=== PATIENT | male | born 1960 | race Caucasian/White ===

== ENCOUNTER 2018-06-05 09:06 | Emergency (ER) | payer OTHER ==
[2018-06-05] MEDS ORDERED: VALACYCLOVIR 500 MG TAB ONE (09:45)
--- NOTE | 2018-06-05 09:52 | EDPHYS ---
Physician Documentation [facility] Name: Sukhdev Wilkerson Age: 58 yrs Sex: Male : 1960 Arrival Date: 06/05/2018 Time: 09:10 Bed 7 Private MD: Denilson Cueto ED Physician Buzz Horton HPI: 06/05 13:25 This 58 yrs old Male presents to ER via Ambulatory with complaints of Skin pm1 Problem. 13:25 The patient's rash thought to be caused by an unknown cause. The rash is located on the pm1 right subscapular area and right breast. The rash can be described as vesicular. Onset: The symptoms/episode began/occurred 2 day(s) ago. Associated signs and symptoms: Pertinent positives: right subscapular pain at area of rash, Pertinent negatives: fever. Treatment given at home: OTC lotion/cream. The patient has not experienced similar symptoms in the past. Historical: - Allergies: 09:24 Sulfa (Sulfonamide Antibiotics); ph - Home Meds: 09:24 Wellbutrin Oral [Active]; AndroGel transdermal transdermal [Active]; ph - PSHx: 09:24 eye sx; testicular surgery as child; ph - Immunization history:: Adult Immunizations unknown. - Social history:: Smoking status: Patient/guardian denies using tobacco. - Ebola Screening: : No symptoms or risks identified at this time. ROS: 13:25 Constitutional: Negative for fever, chills, and weight loss, Eyes: Negative for injury, pm1 pain, redness, and discharge, ENT: Negative for injury, pain, and discharge, Neck: Negative for injury, pain, and swelling, Cardiovascular: Negative for chest pain, palpitations, and edema, Respiratory: Negative for shortness of breath, cough, wheezing, and pleuritic chest pain, Abdomen/GI: Negative for abdominal pain, nausea, vomiting, diarrhea, and constipation, Back: Negative for injury and pain, MS/Extremity: Negative for injury and deformity. 13:25 Neuro: Negative for headache, weakness, numbness, tingling, and seizure. 13:25 Skin: Positive for rash. Exam: 13:25 Constitutional: This is a well developed, well nourished patient who is awake, alert, pm1 and in no acute distress. Head/Face: Normocephalic, atraumatic. Neck: Trachea midline, no thyromegaly or masses palpated, and no cervical lymphadenopathy. Supple, full range of motion without nuchal rigidity, or vertebral point tenderness. No Meningismus. Chest/axilla: Normal chest wall appearance and motion. Nontender with no deformity. No lesions are appreciated. Cardiovascular: Regular rate and rhythm with a normal S1 and S2. No gallops, murmurs, or rubs. Normal PMI, no JVD. No pulse deficits. Respiratory: Lungs have equal breath sounds bilaterally, clear to auscultation and percussion. No rales, rhonchi or wheezes noted. No increased work of breathing, no retractions or nasal flaring. Abdomen/GI: Soft, non-tender, with normal bowel sounds. No distension or tympany. No guarding or rebound. No evidence of tenderness throughout. Back: No spinal tenderness. No costovertebral tenderness. Full range of motion. 13:25 Skin: Appearance: consistent with zoster. 13:25 Neuro: Orientation: is normal, Motor: is normal, moves all fours, Sensation: is normal, no obvious gross deficits. Vital Signs: 09:25 BP 160 / 86; Pulse 74; Resp 18; Temp 97.9; Pulse Ox 98% on R/A; Weight 96.16 kg; Height ph 5 ft. 11 in. (180.34 cm); Pain 5/10; 10:04 BP 132 / 86; Pulse 71; Resp 18; Temp 97.9; Pulse Ox 99% on R/A; ph 09:25 Body Mass Index 29.57 (96.16 kg, 180.34 cm) ph MDM: 09:20 Patient medically screened. pm1 09:27 Data reviewed: vital signs. Data interpreted: Pulse oximetry: on room air is 98 %. pm1 Interpretation: normal. Counseling: I had a detailed discussion with the patient and/or guardian regarding: the historical points, exam findings, and any diagnostic results supporting the discharge/admit diagnosis, the need for outpatient follow up, to return to the emergency department if symptoms worsen or persist or if there are any questions or concerns that arise at home. Administered Medications: 09:42 Drug: Valtrex 1000 mg Route: PO; ph 10:03 Follow up: Response: No adverse reaction ph Disposition: 11:03 Co-signature as Attending Physician, Buzz Horton MD. rn Disposition: 06/05/18 09:52 Discharged to Home. Impression: Zoster [herpes zoster]. - Condition is Stable. - Discharge Instructions: Shingles. - Prescriptions for Tylenol- Codeine #3 300-30 mg Oral Tablet - take 2 tablets by ORAL route every 6 hours As needed; 20 tablet. Valtrex 1 g Oral Tablet - take 1 tablet by ORAL route every 8 hours for 7 days; 21 tablet. - Work release form, Medication Reconciliation Form, Thank You Letter, Antibiotic Education, Prescription Opioid Use form. - Follow up: Emergency Department; When: As needed; Reason: Worsening of condition. Follow up: Denilson Cueto MD; When: 2 - 3 days; Reason: Recheck today's complaints, Continuance of care, Re-evaluation by your physician. - Problem is new. - Symptoms have improved. Signatures: Buzz Horton MD MD rn ValeroChristie RN RN Yash Veronica, JOI THEATRE INSTRUCTOR pm1 Corrections: (The following items were deleted from the chart) 10:04 09:52 06/05/2018 09:52 Discharged to Home. Impression: Zoster [herpes zoster]. ph Condition is Stable. Forms are Medication Reconciliation Form, Thank You Letter, Antibiotic Education, Prescription Opioid Use. Follow up: Emergency Department; When: As needed; Reason: Worsening of condition. Follow up: Denilson Cueto; When: 2 - 3 days; Reason: Recheck today's complaints, Continuance of care, Re-evaluation by your physician. Problem is new. Symptoms have improved. pm1
--- NOTE | 2018-06-05 09:52 | ER ---
Nurse's Notes [facility] Name: Sukhdev Wilkerson Age: 58 yrs Sex: Male : 1960 Arrival Date: 06/05/2018 Time: 09:10 Bed 7 Private MD: Denilson Cueto Diagnosis: Zoster [herpes zoster] Presentation: 06/05 09:21 Presenting complaint: Patient states: " My back started hurting in my R shoulder area ph on Sun and then on Wed I got a rash that goes from my right breast around to my back." Red, raised, vesicular rash noted to R breast, R rib area, and right mid-back, pt denies fever or recent illness. Transition of care: patient was not received from another setting of care. Onset of symptoms was June 05, 2018. Risk Assessment: Do you want to hurt yourself or someone else? Patient reports no desire to harm self or others. Initial Sepsis Screen: Does the patient meet any 2 criteria? No. Patient's initial sepsis screen is negative. Does the patient have a suspected source of infection? No. Patient's initial sepsis screen is negative. Care prior to arrival: None. 09:21 Method Of Arrival: Ambulatory ph 09:21 Acuity: MOUSTAPHA 4 ph Triage Assessment: 09:26 General: Appears in no apparent distress. comfortable, well groomed, Behavior is calm, ph cooperative, appropriate for age, Denies fever, feeling ill. Pain: Complains of pain in right scapular area and right subscapular area. Neuro: Level of Consciousness is awake, alert, obeys commands, Oriented to person, place, time, situation. Cardiovascular: Capillary refill < 3 seconds Patient's skin is warm and dry. Respiratory: Airway is patent Respiratory effort is even, unlabored. GI: No signs and/or symptoms were reported involving the gastrointestinal system. Derm: Skin is healthy with good turgor, Skin is pink, warm \\T\\ dry. Rash noted that is red, raised, vesicular, on anterior aspect of right upper chest, right lateral anterior chest, right lateral posterior chest and right breast, right mid-back/subscapular area. Musculoskeletal: Circulation, motion, and sensation intact. Range of motion: intact in all extremities. Historical: - Allergies: 09:24 Sulfa (Sulfonamide Antibiotics); ph - Home Meds: 09:24 Wellbutrin Oral [Active]; AndroGel transdermal transdermal [Active]; ph - PSHx: 09:24 eye sx; testicular surgery as child; ph - Immunization history:: Adult Immunizations unknown. - Social history:: Smoking status: Patient/guardian denies using tobacco. - Ebola Screening: : No symptoms or risks identified at this time. Screenin:28 Abuse screen: Denies threats or abuse. Denies injuries from another. Nutritional ph screening: No deficits noted. Tuberculosis screening: No symptoms or risk factors identified. Fall Risk None identified. Assessment: 10:02 Reassessment: Patient appears in no apparent distress at this time. Patient and/or ph family updated on plan of care and expected duration. Pain level reassessed. Patient is alert, oriented x 3, equal unlabored respirations, skin warm/dry/pink. Pt d/c home w/ work note and 2 scripts. Vital Signs: 09:25 BP 160 / 86; Pulse 74; Resp 18; Temp 97.9; Pulse Ox 98% on R/A; Weight 96.16 kg; Height ph 5 ft. 11 in. (180.34 cm); Pain 5/10; 10:04 BP 132 / 86; Pulse 71; Resp 18; Temp 97.9; Pulse Ox 99% on R/A; ph 09:25 Body Mass Index 29.57 (96.16 kg, 180.34 cm) ph ED Course: 09:10 Patient arrived in ED. as 09:11 Denilson Cueto MD is Private Physician. as 09:19 Yash Veronica NP is PHCP. pm1 09:19 Buzz Horton MD is Attending Physician. pm1 09:21 Christie Valero, BRITTANY is Primary Nurse. ph 09:23 Triage completed. ph 09:26 Arm band placed on Patient placed in an exam room, on a stretcher. ph 09:28 Patient has correct armband on for positive identification. Bed in low position. Call ph light in reach. Side rails up X 1. Pulse ox on. NIBP on. 09:29 No provider procedures requiring assistance completed. Patient did not have IV access ph during this emergency room visit. 09:51 Denilson Cueto MD is Referral Physician. pm1 Administered Medications: 09:42 Drug: Valtrex 1000 mg Route: PO; ph 10:03 Follow up: Response: No adverse reaction ph Outcome: 09:52 Discharge ordered by . pm1 10:03 Discharged to home ambulatory. ph 10:03 Condition: good 10:03 Discharge instructions given to patient, Instructed on discharge instructions, follow up and referral plans. medication usage, Demonstrated understanding of instructions, follow-up care, medications, Prescriptions given X 2. 10:04 Patient left the ED. ph Signatures: Caity Sexton Patricia, BRITTANY RN ph Yash Veronica, JOI [employer] FLOOR WORKER pm1
== END 2018-06-05 10:04 | disposition home or self-care (01) ==
LOC: ER 09:06
DX: B02.9 Zoster without complications (principal); Z88.2 Allergy status to sulfonamides
CPT/HCPCS: 99283